=== PATIENT | male | born 1945 | race Caucasian/White ===

== ENCOUNTER 2024-06-09 12:56 | Outpatient (REF) | payer BC, SELFPAY | END 2024-06-09 12:57 | disposition home or self-care (01) | LOC: HO.SH 12:56 | PROVIDERS: Visit Provider Internal Medicine | DX: Z01.118 Encounter for examination of ears and hearing with other abnormal findings (principal); H90.3 Sensorineural hearing loss, bilateral | CPT/HCPCS: 92557 ==

== ENCOUNTER 2024-06-14 11:27 | Outpatient (REF) | payer SELFPAY ==
--- NOTE | 2024-06-14 16:44 | MHC.AU.MED ---
Medical Clearance for Hearing Instrumentation Date: 06/14/24 Patient Name: Teo Roberts Date of : 1945 Primary Care Provider: Referring Provider: Chika Ellis MD We have seen your patient on 06/14/24 and have determined that they are a candidate for amplification (See accompanying report). Specifically, they would benefit from: Hearing aid use in both ears There is a statute that addresses Medical Evaluation Requirements prior to fitting a patient with a hearing aid. According to [place] statute 265 CMR:6.03(1), (a) General. Except as provided in 265 CMR 6.03(1)(b), a deaf/hard of hearing specialist shall not sell a hearing aid unless the prospective user has presented to the deaf/hard of hearing specialist a written statement signed by a licensed physician that states that the patient's hearing loss has been medically evaluated and the patient may be considered a candidate for a hearing aid. The medical evaluation must have taken place within the preceding six months. Please note: Due to the [place] Statute referenced above, we cannot accept a signature other than that of a licensed physician. ELECTRIC PILE DRIVER OPERATOR and PA signatures cannot be accepted. I am in agreement with the above recommendation. There is no medical contraindication for hearing instrumentation. Physician Signature Date Physician Name (Printed)
== END 2024-06-14 11:28 | disposition home or self-care (01) ==
LOC: HO.HAP 11:27
PROVIDERS: Visit Provider Internal Medicine
DX: Z46.1 Encounter for fitting and adjustment of hearing aid (principal); H90.3 Sensorineural hearing loss, bilateral
CPT/HCPCS: 92590

== ENCOUNTER 2024-07-22 13:56 | Outpatient (REF) | payer SELFPAY | END 2024-07-22 13:57 | disposition home or self-care (01) | LOC: HO.HAP 13:56 | PROVIDERS: Visit Provider Internal Medicine | DX: Z46.1 Encounter for fitting and adjustment of hearing aid (principal); H90.3 Sensorineural hearing loss, bilateral | CPT/HCPCS: V5258; V5264; V5299 ==

== ENCOUNTER 2024-07-26 08:23 | Outpatient (REF) | payer SELFPAY | END 2024-07-26 08:24 | disposition home or self-care (01) | LOC: HO.HAP 08:23 | PROVIDERS: Visit Provider Internal Medicine | DX: Z13.89 Encounter for screening for other disorder (principal) ==

== ENCOUNTER 2024-08-12 12:54 | Outpatient (REF) | payer SELFPAY | END 2024-08-12 12:55 | disposition home or self-care (01) | LOC: HO.HAP 12:54 | PROVIDERS: Visit Provider Internal Medicine | DX: Z13.89 Encounter for screening for other disorder (principal) ==

== ENCOUNTER 2025-02-24 13:24 | Outpatient (REF) | payer SELFPAY ==
--- OUTSIDE RECORDS SUMMARY | 2025-02-24 14:06 | XMS_ITS | Clinical Summary ---
Author Organization [address] Address [address] [place] [address] [place] [address] Phone Care Team Providers Care Forging Press Setter Up Name Role Phone Chika Ellis MD Primary Care Provider [phone] Allergies Active Allergy Reactions Criticality Noted Date Comments Amoxicillin-Pot Clavulanate Hives 10/21/20 06 Medications atorvastatin (LIPITOR) 10 mg tablet Take 1 tablet (10 mg total) by mouth 1 (one) time each day. 90 tablet 1 11/18/2024 Active Active Problems Problem Noted Date Diagnosed Date Liver cyst 06/03/2023 Abnormal EKG 12/30/2021 Pancreatic cyst 04/04/2019 Overview (09/27/2024): 04/04/2019--small benign cyst on CT and MRI, consider repeat imaging in approximately April,. Mixed hyperlipidemia 06/19/2009 Hearing loss 10/21/2006 Overview (09/27/2024): IMO update Encounters Date Type Department Care Team Description 02/06/2025 8:45 AM EDT - 02/06/2025 11:59 PM EDT Hospital Encounter [facility] MRI [address] [place] [address] Liver cyst; Pancreatic cyst Discharge Disposition: Home or Self Care 01/23/2025 8:50 AM EDT Office Visit Gastroenterology - [place] [address] [place] [address] Sadaf Cancino PA Liver cyst (Primary Dx); Pancreatic cyst 01/16/2025 Telephone Adult Medicine [address] [address] Chika Ellis MD Referral 12/22/2024 Telephone Adult Medicine [address] [address] Chika Ellis MD 12/14/2024 Telephone Adult [address] [address] Chika Ellis MD Provider Call Back from Last 3 Months Immunizations Name Administration Dates Next Due Influenza trivalent, 0.5mL ( Fluad) 65yo and older 09/04/2022,08/30/2018,08/24/2017 Pneumococcal conjugate 13 va lent (Prevnar 13, PCV13) 2mo and older 01/31/2015 Pneumococcal polysaccharide 23 valent (Pneumovax 23) 2yo and older 12/24/2010 Td Tetanus diptheria (Tdvax) 7yo and older 01/09,11/02/1996 Tdap Tetanus diptheria acell ular pertussis (Boostrix; Adacel) 7yo and older 06/19/2009 Zoster Live 09/18/2019,12/24/2010 Zoster recombinant (Shingrix ) 19yo and older 01/10/2020,03/22/2019 Surgical History Surgery Date Site/Laterality Comments HERNIA REPAIR PROCEDURE: HISTORICAL HERNIA REPAIR/ING COLONOSCOPY 09/14/2009 PROCEDURE: HISTORICAL COLONOSCOPY; COMMENT: Normal COLONOSCOPY 12/17/1999 PROCEDURE: HISTORICAL COLONOSCOPY; COMMENT: Diminutive hyperplastic polyp. COLONOSCOPY 11/25/2019 PROCEDURE: HISTORICAL COLONOSCOPY; COMMENT: normal Medical History Medical History Date Comments Unspecified hearing loss 10/21/2006 DX:Unsp ecified hearing loss Historical Medical DX 06/19/2009 DX:Family history of cancer of the gastrointestinal tract Pancreatic cyst 04/04/2019 DX:Pancreatic cy st; COMMENT: 04/04/2019--small benign cyst on CT and MRI, consider repeat imaging in approximately April,. Family History Medical History Relation Name Comments Colon cancer Maternal Grandmother Colon cancer Mother dx age 65 Relation Name Status Comments Brother 1 Alive Brother 2 Alive cholesterol Father (Age 75) mi Maternal Grandmother Mother (Age 100) colon cnc er Sister Alive cholesterol Social History Tobacco Use Types Packs/Day Years Used Date Smoking Tobacco: Never Smokeless Tobacco: Never Tobacco Cessation:Counseling Given: Not Answered Alcohol Use Standard Drinks/Week Comments Yes 0 (1 standard drink = 0.6 oz pur e alcohol) Sex and Gender Information Value Date Recorded Sex Assigned at Not on file Legal Sex Male 2:19 AM EST Gender Identity Not on file Sexual Orientation Not on file Obstetrics History Last Filed Vital Signs Vital Sign Reading Time Taken Comments Blood Pressure 96/66 01/23/2025 8:52 AM EDT Pulse 76 11/22/2024 9:40 AM EST Temperature 36 ??C (96.8 ??F) 11/22/2024 9:4 0 AM EST Respiratory Rate 22 11/22/2024 9:40 AM EST Oxygen Saturation 96% 02/15/2024 10: 24 AM EDT at rest, room air Inhaled Oxygen Concentration - - Weight 77.1 kg (170 lb) 01/23/2025 8:52 AM EDT Height 172.7 cm (5' 8 ) 01/23/2025 8:52 AM EDT Body Mass Index 25.85 01/23/2025 8:52 AM EDT Plan of Treatment Upcoming Encounters Date Type Department Care Team (Late st Contact Info) Description 06/01/2025 8:30 AM EDT Office Visit Adult Medicine [facility] [address] [place] [address] Chika Ellis MD [address] [place] [address] Health Maintenance Due Date Last Done Comments RSV Immunization Adult Patients (1 - 1-dose 75+ series) 2020 Depression Screening 10/11/2022 Falls Risk Assessment 10/11/2022 Social Influencers of Health Screening 10/11/2022 COVID-19 Vaccine ( season) 2024 03/18/2022, 08/26/2021, 01/03/2021, Additional history exists Influenza Vaccine (Season Ended) 2025 09/04/2022, 08/30/2018, 08/24/2017 Cholesterol Screening (Lipid Panel) 11/01/2029 11/01/2024, 02/16/2024 DTaP,Tdap,and Td Vaccines (4 - Td or Tdap) 01/09/2030 01/10/2020, 06/19/2009, 11/02/1996 Hepatitis C Screening Completed 06/30/2013 Pneumococcal Vaccine: 50+ Years Completed 01/31/2015, 12/24/2010 Zoster Vaccines Completed 01/10/2020, 09/02, 03/22/2019, Additional history exists HIB Vaccines Aged Out No longer eligi ble based on patient's age to complete this topic HPV Vaccines Aged Out No longer eligi ble based on patient's age to complete this topic Hepatitis A Vaccines Aged Out No long er eligible based on patient's age to complete this topic Hepatitis B Vaccines Aged Out No long er eligible based on patient's age to complete this topic IPV Vaccines Aged Out No longer eligi ble based on patient's age to complete this topic MMR Vaccines Aged Out No longer eligi ble based on patient's age to complete this topic Meningococcal ACWY Vaccine Aged Out N o longer eligible based on patient's age to complete this topic Meningococcal B Vaccine Aged Out No l onger eligible based on patient's age to complete this topic RSV Immunization Patients Under 20 months Aged Out No longer eligible based on patient's age to complete this topic Varicella Vaccines Aged Out No longer eligible based on patient's age to complete this topic Procedures Procedure Name Priority Date/Time Associated Diagnosis Comments MR ABDOMEN WO AND W CONTRAST Routine 02/06/2025 10:16 AM EDT Liver cyst Pancreatic cyst LIPID PANEL WITH REFLEX TO DIRECT LDL Routine 11/01/2024 8:15 AM EST Routine general medical examination at a health care facility HEPATITIS C SCREENING Routine 06/30/2013 from Last 3 Months or Most Recently Relevant to Health Maintenance Results * MR Abdomen wo and w Contrast (02/06/2025 10:16 AM EDT) Anatomical Region Laterality Modality Body Magnetic Resonan ce 02/06/2025 1:54 PM EDT Impressions 02/06/2025 2:36 PM EDT 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 ??The largest lesion measures up to 1.8 cm in diameter. ??A follow-up MRI is recommended in ??2 years to assess for stability, as per guidelines. -------- FINAL REPORT -------- Dictated By: Bhavik Jimenez Dictated Date: 02/06/2025 13:54 ET Assigned Physician: Bhavik Jimenez Reviewed and Electronically Signed By: Bhavik Jimenez Signed Date: 02/06/2025 14:36 ET Workstation ID: [id number] Transcribed By: Self Edit Transcribed Date: 02/06/2025 13:54 ET Narrative 02/06/2025 2:36 PM EDT PROCEDURE: MRI of the abdomen with intravenous contrast. ??MRCP was also performed. HISTORY: Pancreatic cyst/pseudocyst. TECHNIQUE: Multiplanar multisequence MRI of the abdomen with and without intravenous contrast. IV contrast dose: ??15 mL Dotarem from a 15 mL vial with 0 mL discarded. COMPARISON: 11/18/2023. FINDINGS: LOWER THORAX: Normal. LIVER: 2.1 cm cyst in the right lobe. ??No evidence of steatosis on out of phase imaging. ??The portal and hepatic veins are patent. BILIARY: Normal gallbladder. ??Normal caliber biliary tree. ??No ductal dilatation or filling defect. PANCREAS: There is a stable cyst in the head. ??This measures 15 mm craniocaudal and 1.8 x 1.4 cm transversely. ??Several other smaller T2 hyperintense lesions in the neck and proximal pancreatic body are also unchanged. ??Some of these communicate with the main duct. ??None of the lesions demonstrates associated contrast enhancement. ??No ductal dilatation. SPLEEN: Normal. ADRENAL GLANDS: Normal. KIDNEYS: Normal. ??Visible portions of the collecting systems are normal. RETROPERITONEUM: No mass or lymphadenopathy. VASCULATURE: No aneurysm. BOWEL/MESENTERY: Visible portions are normal. ABDOMINAL WALL: Visible portions are normal. BONES: Mild S-shaped lower thoracic and lumbar scoliosis. ??Degenerative changes of the spine, most prominent along the concave margin of the lumbar scoliotic curve. ??No visible bony lesion. Procedure Note Bhavik Jimenez MD - 02/06/2025 PROCEDURE: MRI of the abdomen with intravenous contrast. MRCP was alsoperformed. HISTORY: Pancreatic cyst/pseudocyst. TECHNIQUE: Multiplanar multisequence MRI of the abdomen with and withoutintravenous contrast. IV contrast dose: 15 mL Dotarem from a 15 mL vial with 0 mL discarded. COMPARISON: 11/18/2023. FINDINGS: LOWER THORAX: Normal. LIVER: 2.1 cm cyst in the right lobe. No evidence of steatosis on out ofphase imaging. The portal and hepatic veins are patent. BILIARY: Normal gallbladder. Normal caliber biliary tree. No ductaldilatation or filling defect. PANCREAS: There is a stable cyst in the head. This measures 15 mmcraniocaudal and 1.8 x 1.4 cm transversely. Several other smaller C4mauunmxxbqwj lesions in the neck and proximal pancreatic body are alsounchanged. Some of these communicate with the main duct. None of thelesions demonstrates associated contrast enhancement. No ductaldilatation. SPLEEN: Normal. ADRENAL GLANDS: Normal. KIDNEYS: Normal. Visible portions of the collecting systems are normal. RETROPERITONEUM: No mass or lymphadenopathy. VASCULATURE: No aneurysm. BOWEL/MESENTERY: Visible portions are normal. ABDOMINAL WALL: Visible portions are normal. BONES: Mild S-shaped lower thoracic and lumbar scoliosis. Degenerativechanges of the spine, most prominent along the concave margin of thelumbar scoliotic curve. No visible bony lesion. 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 The largestlesion measures up to 1.8 cm in diameter. A follow-up MRI is recommendedin 2 years to assess for stability, as per guidelines. -------- FINAL REPORT -------- Dictated By: Bhavik Jimenez Dictated Date: 02/06/2025 13:54 ET Assigned Physician: Bhavik Jimenez Reviewed and Electronically Signed By: Bhavik Jimenez Signed Date: 02/06/2025 14:36 ET Workstation ID: [id number] Transcribed By: Self Edit Transcribed Date: 02/06/2025 13:54 ET Sadaf [facility] MRI PROCEDURES Final Resu lt * Lipid panel with reflex to direct LDL (11/01/2024 8:15 AM EST) Cholesterol 166 0 - 200 mg/dL LAB CHEMISTRY METHOD 11/01/2024 10:39 AM EST [facility] Triglycerides 59 0 - 150 mg/dL LAB CHEMISTRY METHOD 11/01/2024 10:39 AM [facility] HDL 64 >=40 mg/dL LAB CHEMISTRY METHOD 11/01/2024 10:39 AM EST [facility] LDL Calculated 90 0 - 100 mg/dL LAB CHEMISTRY METHOD 11/01/2024 10:39 AM [facility] VLDL Cholesterol Carlos Alberto 11.8 mg/dL LAB CHEMISTRY METHOD 11/01/2024 10:39 AM [facility] Non HDL Chol. (LDL+VLDL) 102 <145 mg/dL LAB CHEMISTRY METHOD 11/01/2024 10:39 AM [facility] Chol/HDL Ratio 2.6 0.0 - 4.4 LAB CHEMISTRY METHOD 11/01/2024 10:39 AM [facility] Blood Venous blood specimen / Unknown Venipuncture / Unknown 11/01/2024 8:15 AM EST 11/01/2024 8:15 AM EST Chika Ellis MD LAB BLOOD ORDERABLES Final Resul t [facility] [address] [place] [address], * Hepatitis C Screening (06/30/2013) Hepatitis C Screening Abstracted Tommy Provider HEALTH MAINTENANCE Final Result from Last 3 Months or Most Recently Relevant to Health Maintenance Insurance [facility] Care Teams Forging Press Setter Up Relationship Specialty Start Date End Date Chika Ellis MD [address] [place] [address] PCP - General Internal Medicine 08/26/21
== END 2025-02-24 13:25 | disposition home or self-care (01) ==
LOC: HO.HAP 13:24
PROVIDERS: Visit Provider Internal Medicine
DX: Z13.89 Encounter for screening for other disorder (principal)

== ENCOUNTER 2025-03-24 12:56 | Outpatient (REF) | payer SELFPAY ==
--- OUTSIDE RECORDS SUMMARY | 2025-03-24 12:58 | XMS_ITS | Clinical Summary ---
Author Organization [address] Address [address] [address] [place] [address] Phone Care Team Providers Care Supervisor Acoustical Tile Carpenters Name Role Phone Chika Ellis MD Primary Care Provider [phone] Allergies Active Allergy Reactions Criticality Noted Date [...] - 02/06/2025 11:59 PM EDT Hospital Encounter [facility] MRI [address] [place] [address] Liver cyst; Pancreatic cyst Discharge Disposition: Home or Self Care 01/23/2025 8:50 AM EDT Office Visit Gastroenterology - [place] [address] [place] [address] Sadaf Cancino PA Liver cyst (Primary Dx); Pancreatic cyst 01/16/2025 Telephone Adult Medicine [address] [address] Chika Ellis MD Referral from Last 3 Months Immunizations Name Administration [...] 8:30 AM EDT Office Visit Adult Medicine [facility] [address] [place] [address] Chika Ellis MD [address] [place] [address] Health Maintenance Due Date Last Done Comments [...] EST Routine general medical examination at a [facility] care facility HEPATITIS C SCREENING Routine 06/30/2013 [...] Signed Date: 02/06/2025 14:36 ET Workstation ID: [id number] Transcribed By: Self Edit Transcribed Date: 02/06/2025 [...] x 1.4 cm transversely. Several other smaller U5ldqesactnhqg lesions in the neck and proximal pancreatic [...] Signed Date: 02/06/2025 14:36 ET Workstation ID: [id number] Transcribed By: Self Edit Transcribed Date: 02/06/2025 13:54 ET Sadaf [facility] MRI PROCEDURES Final Resu lt * Lipid panel with reflex to direct LDL (11/01/2024 8:15 AM EST) Cholesterol 166 0 - 200 mg/dL LAB CHEMISTRY METHOD 11/01/2024 10:39 AM EST [facility] Triglycerides 59 0 - 150 mg/dL LAB CHEMISTRY METHOD 11/01/2024 10:39 AM EST [facility] HDL 64 >=40 mg/dL LAB CHEMISTRY METHOD 11/01/2024 10:39 AM EST [facility] LDL Calculated 90 0 - 100 mg/dL LAB CHEMISTRY METHOD 11/01/2024 10:39 AM [facility] VLDL Cholesterol Carlos Alberto 11.8 mg/dL LAB CHEMISTRY METHOD 11/01/2024 10:39 AM EST [facility] Non HDL Chol. (LDL+VLDL) 102 <145 mg/dL LAB CHEMISTRY METHOD 11/01/2024 10:39 AM [facility] Chol/HDL Ratio 2.6 0.0 - 4.4 LAB CHEMISTRY METHOD 11/01/2024 10:39 AM [facility] Blood Venous blood specimen / Unknown Venipuncture / Unknown 11/01/2024 8:15 AM EST 11/01/2024 8:15 AM EST Chika Ellis MD LAB BLOOD ORDERABLES Final Resul t [facility] [address] [place] [address], * Hepatitis C Screening (06/30/2013) Hepatitis C Screening Abstracted Historical Provider HEALTH MAINTENANCE Final Result from Last 3 Months or Most Recently Relevant to Health Maintenance Insurance [facility] Care Teams Supervisor Acoustical Tile Carpenters Relationship Specialty Start Date End Date Chika Ellis MD [address] [place] [address] PCP - General Internal Medicine 08/26/21
== END 2025-03-24 12:57 | disposition home or self-care (01) ==
LOC: HO.HAP 12:56
PROVIDERS: Visit Provider Internal Medicine
DX: Z46.1 Encounter for fitting and adjustment of hearing aid (principal); H90.3 Sensorineural hearing loss, bilateral
CPT/HCPCS: 92593